=== PATIENT | female | born 1985 | race Caucasian/White ===

== ENCOUNTER → 2016-04-30 | Emergency (ER) | payer MEDICAID ==
[~2016-04-30] VITALS: Ht 160 cm; Wt 93.8 kg
[~2016-04-30] MED LIST: DIAZ-90 PO; DIAZEPAM 5 MG TAB PO ONE; HYDR-3498 PO; KETOROLAC 15 MG INJ IM STA; NAPR-260 PO; PREN1TAB12 PO
[2016-04-30 19:10] VITALS: Ht 160 cm; Wt 93.8 kg
[2016-04-30 20:57] LABS: URINE BLOOD (Dip) POC Trace-intact (NEGATIVE)
--- NOTE | 2016-04-30 21:38 | ERD ---
ER Documentation Chief Complaint Date/Time DATE: 04/30/16 TIME: 21:36 Chief Complaint low back pain, denies injury HPI Pleasant 30-year-old female comes to emergency department today with complaint of low back pain. Symptoms started today at approximately 11 AM, patient reports she was carrying a stroller upstairs, felt her back pull, patient has pain across bilateral low back. States that pain was progressive and now it is greater than 10/10 on pain scale, patient denies any alteration in bowel or bladder, able to ambulate without foot drag. Denies dysuria or hematuria. Patient reports sitting makes symptoms worse and that she cannot find a position of comfort. Patient brought in by . ROS All systems reviewed and are negative except as per history of present illness. Medications Home Meds Active Scripts Diazepam* (Valium*) 5 Mg Tablet, 5 MG PO Q12 Y for back pain, #10 TAB Prov:MERCEDES,THOR 04/30/16 Naproxen* (Naprosyn*) 500 Mg Tablet, 500 MG PO BID WITH MEALS, #10 TAB Prov:MERCEDES,THOR 04/30/16 Naproxen* (Naprosyn*) 500 Mg Tablet, 500 MG PO BID Y for PAIN AND/OR INFLAMMATION, #30 TAB Prov:LIZZIE MELARA PA-C 06/23/15 Hydrocodone Bit-Acetaminophen* ([place]*) 5-325 Mg Tab, 1 TAB PO Q6 Y for PAIN, # 10 TAB Prov:LIZZIE MELARA PA-C 06/23/15 Reported Medications Vit/Fe Fumarate/Fa ( 1-1 Tablet) 1 Tab Tablet, 1 TAB PO DAILY 09/09/11 Allergies Allergies: Coded Allergies: No Known Allergies (Verified Allergy, Unknown, 07/18/13) PMhx/Soc History of Surgery: Yes (C SECTION X2) Anesthesia Reaction: No Hx Neurological Disorder: No Hx Respiratory Disorders: No Hx Cardiac Disorders: No Hx Psychiatric Problems: No Hx Miscellaneous Medical Probl: No Hx Alcohol Use: No Hx Substance Use: No Hx Tobacco Use: No Smoking Status: Never smoker Physical Exam Vitals Vital Signs Date Time Temp Pulse Resp B/P Pulse Ox O2 Delivery O2 Flow Rate FiO2 04/30/16 21:53 98.3 66 18 121/81 96 Room Air 04/30/16 19:10 97.7 61 20 147/71 100 Vitals stable, nursing notes reviewed Physical Exam Const: [] No acute distress Head: Eyes: ENT: Neck: Resp: Clear to auscultation bilaterally Cardio: Regular rate and rhythm, no murmurs Abd: Skin: No petechiae or rashes Back: Straight leg raise is positive bilaterally at degrees. Patient ambulating without limp. No bony point tenderness, paraspinal tenderness bilateral lumbar spine L4-L5, L5-S1. Ext: No cyanosis, or edema Neur: Awake and alert Psych: Normal Mood and Affect Results 24 hrs Laboratory Tests Test 04/30/16 20:59 Bedside Urine Blood Trace-intact Bedside Urine Glucose (UA) Negative Bedside Urine Ketones (LAB) Negative Bedside Urine Leukocyte Esterase (L Negative Bedside Urine Nitrite (LAB) Negative Bedside Urine Protein (LAB) Trace Bedside Urine pH (LAB) 6.0 Current Medications Medications (Trade) Dose Ordered Sig/Ashley Route PRN Reason Start Time Stop Time Status Last Admin Dose Admin Ketorolac Tromethamine (Toradol) 15 mg ONCE STAT IM 04/30/16 20:27 04/30/16 20:28 DC 04/30/16 21:08 Diazepam (Valium) 5 mg ONCE ONCE PO 04/30/16 20:30 04/30/16 20:31 DC 04/30/16 21:07 Interpretation text Urinalysis normal Procedures/MDM Pleasant 30-year-old female presents to emergency department today for back pain. Patient has injury today carrying her daughter's stroller upstairs. Reports progressive worsening. Radiographic imaging is considered but I have decided to treat empirically with Toradol and Valium. Medical treatment produced effective relief. Patient has no history of back injury., Urinalysis without evidence of infection. I feel patient is a excellent candidate for outpatient management and is stable for discharge at this time. I have discussed results, examination findings, the treatment plan with the patient and family present prior to discharge. Indications for emergent reevaluation, side effects of medication were also discussed. All questions were answered. Patient verbalizes understanding and agrees with plan of care. THOR LONG Apr 30, 2016 21:38
[2016-04-30 21:53] VITALS: BP 121/81; PULSE 66; RESP 18; TEMP 98.3
== END | disposition home or self-care (01) ==
LOC: FTE 18:49
DX: S39.92XA Unspecified injury of lower back, initial encounter (principal); X50.0XXA Overexertion from strenuous movement or load, initial encounter; Y92.9 Unspecified place or not applicable
CPT/HCPCS: 81003; 96372; J1885; Z7502; Z7610

== ENCOUNTER 2017-08-17 08:00 | Inpatient (IN) | END 2017-08-20 13:40 | disposition home or self-care (01) | DRG 766 ==